=== PATIENT | male | born 1965 | race Caucasian/White ===

== ENCOUNTER 2022-11-08 08:56 | Emergency (ER) | payer BC, SELFPAY ==
--- NOTE | ~2022-11-08 | CT_ITS ---
EXAMINATION: CT HEAD WITHOUT CONTRAST CLINICAL INFORMATION: Fell, hitting face COMPARISON: None TECHNIQUE: Contiguous axial imaging was performed from the skull base to vertex without intravenous administration of contrast. This CT examination was performed using dose optimization techniques as appropriate, variously including the following: *Automated exposure control *Adjustment of mA and/or kV according to patient size (this includes techniques or standardized protocols for targeted exams where dose is matched to indication/reason for exam; i.e. extremities or head) *Use of iterative reconstruction technique DLP: 760.6 mGy-cm FINDINGS: No evidence for acute bleed or mass effect. Cisterns unremarkable. No intraventricular blood seen. There is no evidence for acute territorial infarct or extra-axial collection. Lyons/white matter differentiation is maintained. There is nasal bone fractures with soft tissue swelling. The mastoids appear well aerated. No distinct skull base disruption. Calvarium appears intact. CT/CT head/brain wo IV con IMPRESSION: No evidence for acute hemorrhage or mass effect. Nasal bone fractures with soft tissue swelling.
--- NOTE | ~2022-11-08 | CT_ITS ---
EXAMINATION: CT FACIAL BONES WITHOUT CONTRAST CLINICAL INFORMATION: Fell, hitting face COMPARISON: None TECHNIQUE: Axial sections performed and bone and soft tissue windows without IV contrast enhancement. This CT examination was performed using dose optimization techniques as appropriate, variously including the following: *Automated exposure control *Adjustment of mA and/or kV according to patient size (this includes techniques or standardized protocols for targeted exams where dose is matched to indication/reason for exam; i.e. extremities or head) *Use of iterative reconstruction technique DLP: 324 mGy-cm FINDINGS: Mandible appears intact with no distinct TMJ disruption. The malar bones and the zygomas appear unremarkable. No appreciable maxillary disruption. Orbital rims and floors unremarkable. Comminuted fracture of the nasal bones and evidence of a fracture of the nasal septum series 6 image 160. There is rightward nasal septal deviation. Infundibula are patent with mucosal thickening at the margins. The olfactory grooves are unremarkable. Prominent soft tissue swelling over the nasal bones. Small swelling associated with the inferior frontal scalp. The globes, optic nerves, and extraocular muscles appear unremarkable. Minimal mucoperiosteal thickening associated with the ethmoid and posterior inferior frontal sinuses. CT/CT facial bones wo IV con IMPRESSION: Comminuted fractures of the nasal bones with evidence of a fracture of the nasal septum. Orbital rims and floors appear unremarkable. Soft tissue swelling as noted above.
--- NOTE | ~2022-11-08 | CT_ITS ---
EXAMINATION: CT CERVICAL SPINE WITHOUT CONTRAST CLINICAL INFORMATION: Fell, hitting face COMPARISON: None TECHNIQUE: Axial sections performed and bone and soft tissue windows without IV contrast enhancement. Sagittal and coronal reconstructions performed. This CT examination was performed using dose optimization techniques as appropriate, variously including the following: *Automated exposure control *Adjustment of mA and/or kV according to patient size (this includes techniques or standardized protocols for targeted exams where dose is matched to indication/reason for exam; i.e. extremities or head) *Use of iterative reconstruction technique DLP: 498 mGy-cm FINDINGS: The odontoid and the condyles are unremarkable. C1 and C2 arches intact. Remaining lamina are and pedicle structures unremarkable. There is facet arthrosis. No evidence for acute compression fracture. Multilevel spondylitic change and degenerative disc space narrowing with a Schmorl's node at the inferior aspect of C6. Facet and uncinate hypertrophic changes are seen with evidence of variable foraminal encroachments. No suspicious cervical chain adenopathy. Epiglottis and vocal cords unremarkable. CT/CT cervical spine wo IV con IMPRESSION: No evidence for acute fracture. Multilevel degenerative changes. Fleischner guidelines were followed.
[2022-11-08 09:14] VITALS: BP 143/77; PULSE 81; RESP 18; TEMP 35.8; O2SAT 97; BMI 27.8
--- NOTE | 2022-11-08 09:47 | ED_ITS ---
HPI - Fall General Chief Complaint: Fall Stated Complaint: fall Time Seen by Provider: 11/08/22 09:22 Source: patient Mode of arrival: ambulatory Limitations: no limitations History of Present Illness HPI Narrative: 49-year-old male patient with past medical history of PTSD presents to the emergency department today after falling. He states he got tangled up in his dog's leash this morning around 5:30 a.m. tripped and hit his nose on the table with immediate pain and bleeding. He denies loss of consciousness, changes in vision, headache, nausea, or ringing in his ears. He denies any recent illness or sick contacts. complaint: fall Onset (ago): hour(s) (4) Fall from: standing Fall witnessed: no Place fall occurred: home Loss of consciousness: none Prolonged down time: no Symptoms prior to fall: none Context: tripped/slipped Location of injury: head Related Data Previous Rx's Medication Instructions Recorded cyclobenzaprine 5 mg tablet 5 mg PO TID PRN muscle spasm #14 11/08/22 tabs lidocaine HCl 3 % topical cream 1 appl topical BID PRN pain #28.35 11/08/22 grams naproxen 500 mg tablet 500 mg PO BID PRN pain #30 tabs 11/08/22 Allergies Allergy/AdvReac Type Severity Reaction Status Date / Time shellfish Allergy Unknown hives Uncoded 06/04/19 00:00 Review of Systems Review of Systems: In addition to documented HPI above, the additional ROS was obtained: Constitutional: No Weight loss, No Fever, No Chills ENT/Mouth: No Ear Pain, No Sinus Pain, No Hoarseness, No sore throat, No Swallowing Difficulty Cardiovascular: No Chest Pain, No SOB Respiratory: No Cough, No Sputum, No Wheezing Gastrointestinal: No Nausea, No Vomiting, No Diarrhea, No Constipation, No Abdominal pain Musculoskeletal: No joint pain, No Myalgias, No Joint Swelling Skin: No Skin Lesions, No rash Neuro: No Weakness, No Numbness, No Paresthesias Yes all other systems are reviewed and are negative [facility] Social History Social History Advance Directives: No Advance Directives Information Provided: No Physical Exam Vital Signs: Vital Signs: Last Vital Signs Temp 96.4 F L 11/08/22 09:14 Pulse 81 12/15/22 09:14 Resp 18 11/08/22 09:14 BP 143/77 H 11/08/22 09:14 Pulse Ox 97 11/08/22 09:14 O2 Del Method 11/08/22 09:14 BMI result Body Mass Index 27.8 Const: General: cooperative, alert and awake Nutritional Appearance: well nourished Orientation/consciousness: patient oriented x3 Limitations: no limitations HEENT: Head: Yes normal to inspection, Yes normocephalic and Yes periorbital ecchymosis (bilateral) Ears: hearing grossly normal bilaterally and external ears normal General nose exam: Abnormal external nose present nasal laceration, nasal abrasion, nasal ecchymosis, nasal erythema and nasal swelling and Epistaxis present bilaterally Face and sinus: Yes normal facial exam and Yes face symmetric Throat: Yes posterior oropharynx normal Eyes: General: appearance normal, both eyes and all related structures Visual Palma: normal visual palma by confrontation Alignment and Position: alignment normal Eyelids: Yes eyelids normal Conjunctivae: conjunctivae normal Sclerae: sclerae normal Corneas: corneas normal Pupils: Equal, round and reactive pupils present EOM: EOMs intact bilaterally Neck: Neck: Yes normal visual inspection, Yes full ROM and No tender Chest: Chest palpation & inspection: normal inspection of the chest Resp: Effort & Inspection: normal respiratory effort, no cough and not labored Auscultation: clear to auscultation bilaterally, no crackles, no rhonchi and no wheezes Cardio: Rate: regular rate Rhythm: regular rhythm GI: Inspection: Yes normal to inspection Palpation (GI): Soft to palpation and nontender Auscultation: normal bowel sounds Back/Spine/Pelvis: Cervical Spine: cervical ROM normal Skin: General skin exam: no rashes or lesions noted Trauma: laceration (nasal bridge) Neuro: General: patient oriented x3, tone normal and moves all extremities Cranial nerves: Yes Equal, round and reactive pupils present, Yes Bilaterally intact EOM present, Yes Nystagmus not present and Yes Normal facial strength present Cognition (Neuro): normal cognition Gait exam (Neuro): Normal gait present Motor exam (neuro): 5/5 motor strength present throughout Extrem: General: Yes normal to inspection, Yes full ROM and Yes capillary refill normal Medications Administered Discontinued Medications Generic Name Dose Route Start Last Admin Trade Name Freq PRN Reason Stop Dose Admin Lidocaine HCl 2 ml 12/15/22 10:13 11/08/22 10:29 Lidocaine Hcl 2% 2 Ml Vial INFILTRATI 11/08/22 10:14 2 ml ONCE ONE Administration Procedures Laceration Laceration 1: Site: face and other (nasal bridge) Size (cm): 1.7 Description: linear Depth: simple, single layer Local Anesthetic: lidocaine 2% Amount of anesthesia used (mL): 1 Pre-repair: wound explored, irrigated extensively and deep structures intact Skin layer closed with: other (prolene) Size (cm): 6-0 Number of sutures: 6 Technique: simple, interrupted Medical Decision Making Medical Decision Making MDM Narrative: 49-year-old male patient with past medical history of PTSD presents to the emergency department today after falling. He states he got tangled up in his dog's leash this morning around 5:30 a.m. tripped and hit his nose on the table with immediate pain and bleeding. 1.7 cm laceration present at nasal bridge. Laceration cleansed and irrigated and repaired with 6 sutures with good approximation of laceration. 1 cm superficial laceration at inner left eyebrow, cleansed with no need for repair. Skin tear near end of nose, cleansed with no need for repair. CT head with no evidence for acute hemorrhage or mass effect, nasal bone fractures with soft tissue swelling. CT cervical spine with no evidence for acute fracture, multilevel degenerative changes. CT face with evidence of comminuted fractures of the nasal bones wth evidence of a fracture of the nasal septum, orbital rims and floors appear unremarkable. Bilateral nares packed with gauze due to continued bleeding. Afrin given with reduction in bleeding. No evidence of septal hematoma on exam. Pt states he is beginning to f eel increased neck soreness/stiffness. IM toradol given for pain with good effect. Pt safe for discharge with plan to return to PCP office or ED for removal of sutures in 5 days. Cyclobenzaprine, Naproxen and lidocaine topical cream sent to preferred pharmacy for management of pain. HPI, PE, diagnostics, and plan discussed with pt with no unanswered questions at this time. Educated to return to the emergency department with increased bleeding, vision changes, headache, dizziness, nausea, vomiting. Recommended to follow up with his primary care provider for further treatment and management. Discharge Plan Discharge Clinical Impression: Nasal bone fractures Patient Disposition: Home, Self-Care Instructions: Naproxen (By mouth), Cyclobenzaprine (By mouth), Lidocaine (Into the skin), Nasal Fracture (ED) Additional Instructions: Please present to your PCP office or return to the emergency department for removal of sutures in 5 days. Cyclobenzaprine (muscle relaxer), Naproxen and lidocaine patches sent to preferred pharmacy for management of pain. Please do not drive, drink alcohol, or use marijuana while taking muscle relaxer. Please return to the emergency department with increased bleeding, vision changes, headache, dizziness, nausea, vomiting, fever, chills, or purulent drainage from your nose. Recommended to follow up with his primary care provider for further treatment and management. Prescriptions: New cyclobenzaprine 5 mg tablet 5 mg PO TID PRN (Reason: muscle spasm) Qty: 14 0RF naproxen 500 mg tablet 500 mg PO BID PRN (Reason: pain) Qty: 30 0RF lidocaine HCl 3 % cream 1 appl topical BID PRN (Reason: pain) Qty: 28.35 0RF Referrals: [facility] [place] Family Medicine [Provider Group] [facility] [place] Primary [facility] [Provider Group] [facility] [place] [facility] [Provider Group] Stand Alone Forms: Work/School Release Print Language: Palestinian
[2022-11-08] MEDS: Ketorolac Tromethamine 15 MG/ML VIAL IM (11:12)
[2022-11-08] MEDS: Oxymetazoline HCl 0.05 % Nasal 15 ML SPRAY 2 SPRAY NOSTRIL-B (11:13)
== END 2022-11-08 11:16 | disposition home or self-care (01) ==
PROVIDERS: Emergency Provider Student in an Organized Health Care Education/Training Program
DX: S02.2XXA Fracture of nasal bones, initial encounter for closed fracture (principal); F43.10 Post-traumatic stress disorder, unspecified; M54.2 Cervicalgia; R51.9 Headache, unspecified; W01.10XA Fall on same level from slipping, tripping and stumbling with subsequent striking against unspecified object, initial encounter; Y93.K1 Activity, walking an animal; Y92.480 Sidewalk as the place of occurrence of the external cause; Y99.9 Unspecified external cause status; Z79.899 Other long term (current) drug therapy
CPT/HCPCS: 12011; 70450; 70486; 72125; 96372; 99283; 99284; J1885

== ENCOUNTER 2022-12-18 14:03 | Emergency (ER) | payer BC, SELFPAY ==
--- NOTE | ~2022-12-18 | CT_ITS ---
EXAMINATION: CT HEAD WITHOUT CONTRAST CLINICAL INFORMATION: Difficulty word finding. History of A. fib on eliquis COMPARISON: Head CT 11/08/2022 TECHNIQUE: Imaging was performed from the skull base to vertex without intravenous administration of contrast. This CT examination was performed using dose optimization techniques as appropriate, variously including the following: *Automated exposure control *Adjustment of mA and/or kV according to patient size (this includes techniques or standardized protocols for targeted exams where dose is matched to indication/reason for exam; i.e. extremities or head) *Use of iterative reconstruction technique Total exam dose length product: 735 mGy-cm FINDINGS: No intra or extra-axial fluid collection, hemorrhage, or mass. No ventriculomegaly. No midline shift or herniation. Basal cisterns are patent. Lyons-white matter differentiation is maintained. No territorial encephalomalacia. No significant volume loss. Small focus of hypoattenuation in the left lentiform nucleus, possibly remote lacunar infarct versus dilated perivascular space, unchanged. No calvarial fracture or soft tissue abnormality. The mastoid air cells and visualized portions of the paranasal sinuses are well aerated. Comminuted displaced fracture deformity of the nasal bones are demonstrated. CT/CT head/brain wo IV con IMPRESSION: No acute intracranial pathology. No acute cranial hemorrhage or acute edematous territorial infarct identified.
--- NOTE | ~2022-12-18 | XR_ITS ---
EXAMINATION: XR CHEST CLINICAL INFORMATION: Chest pain COMPARISON: None TECHNIQUE: Frontal view of the chest was obtained. FINDINGS: The lungs are well expanded. There is no focal consolidation, edema, or effusion. No pneumothorax. The cardiomediastinal silhouette is within normal limits. No acute osseous abnormality. XR/XR chest 1V IMPRESSION: No acute pulmonary disease.
--- NOTE | 2022-12-18 14:04 | ECG_ITS ---
Test Reason : HEART ATACK? Blood Pressure : / mmHG Vent. Rate : 092 BPM Atrial Rate : 092 BPM P-R Int : 188 ms QRS Dur : 212 ms QT Int : 460 ms P-R-T Axes : 088 -59 095 degrees QTc Int : 568 ms Normal sinus rhythm Left axis deviation Left bundle branch block Abnormal ECG No previous ECGs available Referred By: Rita Ontiveros Electronically Signed By:EVA SANTANA
--- NOTE | 2022-12-18 14:08 | ED_ITS ---
HPI - Weakness General Chief complaint: General Medical <ANTONINO Brooks - Last Filed: 12/18/22 14:17> Stated complaint: Heart attack? <ANTONINO Brooks - Last Filed: 12/18/22 14:17> Time Seen by Provider: 12/18/22 14:18 <ANTONINO Brooks - Last Filed: 12/18/22 14:17> Source: patient and family (Friend) <Peyman Solares MD - Last Filed: 12/18/22 19:08> Mode of arrival: ambulatory <Peyman Solares MD - Last Filed: 12/18/22 19:08> Limitations: no limitations <Peyman Solares MD - Last Filed: 12/18/22 19:08> History of Present Illness HPI Narrative: 57-year-old male who presents emergency department for evaluation of you syncopal like symptoms. The patient states that at 12:15 he was working at his desk using a touch screen computer. He states that he was trying to touch the screen when his right hand started to shake. He states that both his upper extremities were shaking in his lower extremities were shaking as well. States he was having difficulty standing felt his legs going to give out on him. He states that the symptoms lasted approximately 20 minutes and still feels shaky at the time of presentation He states he developed tunnel vision which lasted approximately 10 seconds but did not pass out . He denies headache. The patient states that he was recently [place] for 2 days and then he went to see his doctor at the [facility]. The patient has cardiomyopathy and has not been taking these medications for approximately 4-6 months. After seeing is [facility] he restarted his medications on Saturday (5 days prior). He is on the following medications atorvastatin 80 mg at night, torsemide 20 mg daily, Eliquis 5 mg twice a day, carvedilol 6.2 mg twice a day Entresto 26 mg twice a day. Patient denied fever, chills, rhinorrhea, sore throat, cough, chest pain. He states that he has been feeling short of breath and having dyspnea on exertion for 2 weeks. States however he has been able to walk several miles and walk the dog without any difficulty. He has had nausea and vomiting for the past 2 days, he states he has had 2-3 episodes of diarrhea over the past 2 days. <Peyman Solares MD - Last Filed: 12/18/22 19:08> Related Data Home medications: Previous Rx's Medication Instructions Recorded cyclobenzaprine 5 mg tablet 5 mg PO TID PRN muscle spasm #14 11/08/22 tabs lidocaine HCl 3 % topical cream 1 appl topical BID PRN pain #28.35 11/08/22 grams naproxen 500 mg tablet 500 mg PO BID PRN pain #30 tabs 11/08/22 <ANTONINO Brooks - Last Filed: 12/18/22 14:17> Allergies/Adverse reactions: Allergies Allergy/AdvReac Type Severity Reaction Status Date / Time shellfish Allergy Unknown hives Uncoded 06/04/19 00:00 <ANTONINO Brooks - Last Filed: 12/18/22 14:17> Review of Systems Review of Systems: Yes all other systems are reviewed and are negative <Peyman Solares MD - Last Filed: 12/18/22 19:08> [facility] Past Medical History [facility] Narrative: Past medical history: High cholesterol, coronary disease with an ID 7 years prior, cardiomyopathy with an EF of 34%, paroxysmal atrial fibrillation status post ablation, kidney disease. Social history: He states he has had a cardiac ablation for atrial fibrillation, he has had multiple cardioversions, he had 2 hernias repaired in the past. Social history: The patient smokes 5 cigarettes per day but he states that he has smoked more in the past, he smoked for 9 years. He denies alcohol use. He states that does not use drugs at this time but he has used crack cocaine in the past. <Peyman Solares MD - Last Filed: 12/18/22 19:08> Social History Social History: Social History Advance Directives: No Advance Directives Information Provided: No <ANTONINO Brooks - Last Filed: 12/18/22 14:17> Physical Exam Vital Signs: Vital Signs: Last Vital Signs Temp 97.2 F 12/18/22 14:15 Pulse 94 12/18/22 15:15 Resp 18 12/18/22 14:15 BP 81/50 L 12/18/22 15:15 Pulse Ox 93 12/18/22 14:15 O2 Del Method 12/18/22 14:15 BMI result Body Mass Index 26.0 <ANTONINO Brooks - Last Filed: 12/18/22 14:17> Vital Signs: Last Vital Signs Temp 97.2 F 12/18/22 14:15 Pulse 94 12/18/22 15:15 Resp 18 12/18/22 14:15 BP 81/50 L 12/18/22 15:15 Pulse Ox 93 12/18/22 14:15 O2 Del Method 12/18/22 14:15 BMI result Body Mass Index 26.0 <Peyman Solares MD - Last Filed: 12/18/22 19:08> Const: Other: Awake alert male patient, answers all questions appropriately, does not have any obvious difficulty with word finding, he appears to be anxious <Peyman Solares MD - Last Filed: 12/18/22 19:08> Orientation/consciousness: oriented to person and oriented to place <Peyman Solares MD - Last Filed: 12/18/22 19:08> HEENT: Head: Yes normal to inspection, Yes normocephalic and Yes atraumatic <Peyman Solares MD - Last Filed: 12/18/22 19:08> Ears: external ears normal <Peyman Solares MD - Last Filed: 12/18/22 19:08> General nose exam: Normal external nose present <Peyman Solares MD - Last Filed: 12/18/22 19:08> Face and sinus: Yes normal facial exam <Peyman Solares MD - Last Filed: 12/18/22 19:08> Mouth: Normal oral and palatal mucosa present <Peyman Solares MD - Last Filed: 12/18/22 19:08> Throat: Yes posterior oropharynx normal <Peyman Solares MD - Last Filed: 12/18/22 19:08> Eyes: General: appearance normal, both eyes and all related structures <Peyman Solares MD - Last Filed: 12/18/22 19:08> Pupils: Equal, round and reactive pupils present <Peyman Solares MD - Last Filed: 12/18/22 19:08> Neck: Neck: Yes normal visual inspection, Yes no lymphadenopathy, Yes trachea midline and Yes supple <Peyman Solares MD - Last Filed: 12/18/22 19:08> Chest: Chest palpation & inspection: normal inspection of the chest and normal palpation of entire chest wall <Peyman Solares MD - Last Filed: 12/18/22 19:08> Resp: Effort & Inspection: normal respiratory effort and able to speak in complete sentences <Peyman Solares MD - Last Filed: 12/18/22 19:08> Auscultation: clear to auscultation bilaterally <Peyman Solares MD - Last Filed: 12/18/22 19:08> Cardio: Rate: regular rate <Peyman Solares MD - Last Filed: 12/18/22 19:08> Rhythm: regular rhythm <Peyman Solares MD - Last Filed: 12/18/22 19:08> Heart sounds: S1 normal heart sound present, S2 normal heart sound present and no murmurs <Peyman Solares MD - Last Filed: 12/18/22 19:08> GI: Inspection: Yes normal to inspection <Peyman Solares MD - Last Filed: 12/18/22 19:08> Palpation (GI): Soft to palpation, nontender and no guarding <Peyman Solares MD - Last Filed: 12/18/22 19:08> Auscultation: normal bowel sounds <MD Raheel Og Last Filed: 12/18/22 19:08> : General: Yes no CVA tenderness <Peyman Solares MD - Last Filed: 12/18/22 19:08> Back/Spine/Pelvis: Back: no CVA tenderness <MD Raheel Og Last Filed: 12/18/22 19:08> Skin: General skin exam: no rashes or lesions noted <Peyman Solares MD - Last Filed: 12/18/22 19:08> Neuro: General: oriented to person and oriented to place <Peyman Solares MD - Last Filed: 12/18/22 19:08> Cranial nerves: Yes CN's II-XII intact bilaterally and Yes Equal, round and reactive pupils present <MD Raheel Og Last Filed: 12/18/22 19:08> Cognition (Neuro): normal cognition <Peyman Solares MD - Last Filed: 12/18/22 19:08> Motor exam (neuro): 5/5 motor strength present throughout <Peyman Solares MD - Last Filed: 12/18/22 19:08> Extrem: General: Yes normal to inspection <Peyman Solares MD - Last Filed: 12/18/22 19:08> Psych: Appearance: grossly normal <Peyman Solares MD - Last Filed: 12/18/22 19:08> Speech and movement: Normal speech and movement present <Peyman Solares MD - Last Filed: 12/18/22 19:08> Affect: normal affect <Peyman Solares MD - Last Filed: 12/18/22 19:08> Attitude: cooperative <Peyman Solares MD - Last Filed: 12/18/22 19:08> Thought process: Normal thought process present <MD Raheel Og Last Filed: 12/18/22 19:08> Thought content: Normal thought content present <MD Raheel Og Las t Filed: 12/18/22 19:08> Course Course Course Narrative: RME - 57 yo male with history of CHF, LBBB who follows with Cardiology at the [facility] and has been noncompliant with his cardiac medications present to the ER with acute onset of tunnel vision and feeling extremely weak while at his office working on the computer. He states he collapsed to the ground and his arms and legs aren't working. No LOC. Today was the 1st time he took his Coreg in a while. Just got back from [place] yesterday. Floyd well when he woke up today, walked his dog. Brought directly to EKG - VS, POC, Labs, CXR ordered. Still has tunnel vision and feels weak. <ANTONINO Brooks - Last Filed: 12/18/22 14:17> Medications Administered Discontinued Medications Generic Name Dose Route Start Last Admin Trade Name Freq PRN Reason Stop Dose Admin Sodium Chloride 1,000 mls @ 999 mls/hr 12/18/22 14:51 12/18/22 17:17 Ns IV 12/18/22 15:51 Infused .Q1H1M STA Infusion Sodium Chloride 1,000 mls @ 999 mls/hr 12/18/22 16:56 12/18/22 17:17 Ns IV 12/18/22 17:56 999 mls/hr .Q1H1M STA Administration <ANTONINO Brooks - Last Filed: 12/18/22 14:17> Medications Administered Discontinued Medications Generic Name Dose Route Start Last Admin Trade Name Freq PRN Reason Stop Dose Admin Sodium Chloride 1,000 mls @ 999 mls/hr 12/18/22 14:51 12/18/22 17:17 Ns IV 12/18/22 15:51 Infused .Q1H1M STA Infusion Sodium Chloride 1,000 mls @ 999 mls/hr 12/18/22 16:56 12/18/22 17:17 Ns IV 12/18/22 17:56 999 mls/hr .Q1H1M STA Administration <Peyman Solares MD - Last Filed: 12/18/22 19:08> Medical Decision Making Medical Decision Making MDM Narrative: 57-year-old male who presents emergency department for evaluation of shakiness of his upper and lower extremities with weakness, brief tunnel vision, with symptoms being at 12:15 today. Patient did recently travel to [facility] and to the [facility]. States that he has had 2 weeks of shortness of breath and dyspnea on exertion and 1-2 days of nausea vomiting and diarrhea(2 episodes per day) as well. Patient does have a history of left bundle-branch block coronary artery disease and cardiomyopathy with an EF of 34% but has been noncompliant with his medications and restarted these medications on Saturday (5 days prior). Vital signs were normal. Patient's physical examination did reveal an anxious appearing male patient but otherwise exam was unremarkable with a nonfocal neurologic exam. Following tests were ordered by triage rapid medical exam provider: CBC, BMP, liver panel, BNP, magnesium, PT/INR, PTT, troponin, urinalysis and chest x-ray one view. I ordered a urine drug screen, CT scan of the brain without IV contrast. I will check orthostatic vital signs on the patient. I believe that he might be slightly volume depleted, therefore I ordered normal saline x1 L. 1704: The patient was orthostatic, BP supine 114/73 with a pulse of 92, BP sitting 100/66 heart rate 92, BP standing 81/50 with a heart rate of 94, the patient was lightheaded and symptomatic. Patient's laboratory evaluation was interpreted by me as follows: CBC normal. Chloride low 93, CO2 high 31, BUN creatinine elevated 51 and 1.82. Patient does have chronic kidney disease but we did have BUN and creatinine from 06/04/2019 which was normal at 23 and 1.16. Patient's urine tox screen was also positive for fentanyl and cocaine I did discuss this with him he does admit to using drugs. CT scan of the head revealed a recent nasal bone fracture, patient states septum 3 weeks prior when he was walking his dog. Patient was ordered to get a 2 L of normal saline IV, patient will have a repeat BMP and troponin at 17:45 hours. You also have repeat orthostatics at that time. 1903: The patient's repeat troponin was 17.6 which is reassuring since there was no significant increase. Patient's BUN creatinine did improve slightly. The patient is feeling significantly better after receiving the IV fluid. Patient's symptoms were most likely caused by dehydration and causing a near syncopal episode. Patient was discharged home. The patient is here with a co- worker but I did discuss the positive fentanyl and cocaine, the patient does not want any counseling at this time, I did tell him that if he continues to use pamela melissa he will probably from an overdose of fentanyl and he did understand this discussion. The patient will be discharged to home with a Narcan rescue pack and I did discuss using with a sober bystander they can save his life in the event that he stops breathing. <Peyman Solares MD - Last Filed: 12/18/22 19:08> Differential Diagnosis Differential diagnosis includes but is not limited to syncope, near syncope, stroke, arrhythmia, dehydration, toxic metabolic syndrome, drug use, myocardial infarction, <Peyman Solares MD - Last Filed: 12/18/22 19:08> Lab Data Result Diagrams: 12/18/22 14:40 12/18/22 14:40 <ANTONINO Brooks - Last Filed: 12/18/22 14:17> Labs: Lab Results 12/18/22 12/18/22 12/18/22 Range/Units 14:14 14:40 14:40 WBC 9.5 (4.8-10.8) X10*3/uL RBC 5.14 (4.60-5.80) X10*6/uL Hgb 15.4 (14.0-18.0) g/dl Hct 46.1 (42.0-52.0) % MCV 89.7 (80.0-98.0) fL MCH 30.0 (27.0-33.0) pg MCHC 33.4 (31.0-36.0) g/dl RDW 12.6 (11.0-16.0) % Plt Count 228 (160-400) X10*3/uL MPV 10.7 (9.4-12.4) fL Immature Gran % (Auto) 0.2 (0.0-0.4) % Neut % (Auto) 64.7 (45-73) % Lymph % (Auto) 26.5 (20-40) % Ferry % (Auto) 6.6 (2-11) % Eos % (Auto) 1.7 (0-4) % Baso % (Auto) 0.3 (0-2) % Lymph # (Auto) 2.5 (1.2-4.9) X10*3/uL Ferry # (Auto) 0.6 (0.1-1.2) X10*3/uL Eos # (Auto) 0.2 (0.0-0.4) X10*3/uL Baso # (Auto) 0.0 (0.0-0.2) X10*3/uL Abs Immat Gran (auto) 0.02 (0.00-0.03) X10*3/uL Absolute Neuts (auto) 6.1 (2.0-8.3) x10*3/uL Absolute Nucleated RBC 0.000 (0.0-0.012) X10*3/uL Nucleated RBC % (auto) 0.0 (0.0-0.2) /100WBC PT (10.0-13.1) SEC INR (0.9-1.1) APTT (26.0-36.4) SEC Sodium 137 (135-145) mmol/L Potassium 3.8 (3.3-5.1) mmol/L Chloride 93 L (96-108) mmol/L Carbon Dioxide 31 H (22-29) mmol/L Anion Gap 17 (12-20) BUN 51 H (9-16) mg/dL Creatinine 1.82 H (0.5-1.4) mg/dL Estim Creat Clear Calc 51.4 Estimated GFR 38 POC Glucose 122 H (60-115) mg/dL Random Glucose 127 H (60-115) mg/dL Calcium 9.0 (8.4-10.2) mg/dL Magnesium 2.2 (1.6-2.6) mg/dL Total Bilirubin 1.0 (0.0-1.0) mg/dL Direct Bilirubin 0.4 (0.0-0.5) mg/dL AST 23 (5-37) U/L ALT 16 (0-40) U/L Alkaline Phosphatase 78 (39-117) U/L Troponin I High Sens (<3.5-35.0) ng/L B-Natriuretic Peptide (<100) pg/mL Total Protein 7.3 (6.5-8.0) g/dL Albumin 4.3 (3.5-5.0) g/dL Urine Color Urine Appearance Urine pH (5.0-9.0) Ur Specific Campbell (1.005-1.025) Urine Protein (Neg-Trace) mg/dL Urine Glucose (UA) (Negative) mg/dL Urine Ketones (Negative) mg/dL Urine Blood (Negative) Urine Nitrite (Negative) Ur Leukocyte Esterase (Negative) Urine RBC (0-2) /HPF Urine WBC (0-5) /HPF Ur Squamous Epith Cells (0-2) /HPF Urine Bacteria (None Seen) Hyaline Casts (0-2) /LPF Urine Opiates Screen (Not Detect) Urine Fentanyl Screen (Not Detect) Ur Barbiturates Screen (Not Detect) Ur Phencyclidine Scrn (Not Detect) Ur Amphetamines Screen (Not Detect) U Benzodiazepines Scrn (Not Detect) Urine Cocaine Screen (Not Detect) U Marijuana (THC) Screen (Not Detect) COVID-19 (BRENDON) (Negative) COVID-19 Clin Com 12/18/22 12/18/22 12/18/22 Range/Units 14:40 14:40 14:40 WBC (4.8-10.8) X10*3/uL RBC (4.60-5.80) X10*6/uL Hgb (14.0-18.0) g/dl Hct (42.0-52.0) % MCV (80.0-98.0) fL MCH (27.0-33.0) pg MCHC (31.0-36.0) g/dl RDW (11.0-16.0) % Plt Count (160-400) X10*3/uL MPV (9.4-12.4) fL Immature Gran % (Auto) (0.0-0.4) % Neut % (Auto) (45-73) % Lymph % (Auto) (20-40) % Ferry % (Auto) (2-11) % Eos % (Auto) (0-4) % Baso % (Auto) (0-2) % Lymph # (Auto) (1.2-4.9) X10*3/uL Ferry # (Auto) (0.1-1.2) X10*3/uL Eos # (Auto) (0.0-0.4) X10*3/uL Baso # (Auto) (0.0-0.2) X10*3/uL Abs Immat Gran (auto) (0.00-0.03) X10*3/uL Absolute Neuts (auto) (2.0-8.3) x10*3/uL Absolute Nucleated RBC (0.0-0.012) X10*3/uL Nucleated RBC % (auto) (0.0-0.2) /100WBC PT 13.4 H (10.0-13.1) SEC INR 1.2 H (0.9-1.1) APTT 36.1 (26.0-36.4) SEC Sodium (135-145) mmol/L Potassium (3.3-5.1) mmol/L Chloride (96-108) mmol/L Carbon Dioxide (22-29) mmol/L Anion Gap (12-20) BUN (9-16) mg/dL Creatinine (0.5-1.4) mg/dL Estim Creat Clear Calc Estimated GFR POC Glucose (60-115) mg/dL Random Glucose (60-115) mg/dL Calcium (8.4-10.2) mg/dL Magnesium (1.6-2.6) mg/dL Total Bilirubin (0.0-1.0) mg/dL Direct Bilirubin (0.0-0.5) mg/dL AST (5-37) U/L ALT (0-40) U/L Alkaline Phosphatase (39-117) U/L Troponin I High Sens 18.2 (<3.5-35.0) ng/L B-Natriuretic Peptide 52 (<100) pg/mL Total Protein (6.5-8.0) g/dL Albumin (3.5-5.0) g/dL Urine Color Urine Appearance Urine pH (5.0-9.0) Ur Specific Campbell (1.005-1.025) Urine Protein (Neg-Trace) mg/dL Urine Glucose (UA) (Negative) mg/dL Urine Ketones (Negative) mg/dL Urine Blood (Negative) Urine Nitrite (Negative) Ur Leukocyte Esterase (Negative) Urine RBC (0-2) /HPF Urine WBC (0-5) /HPF Ur Squamous Epith Cells (0-2) /HPF Urine Bacteria (None Seen) Hyaline Casts (0-2) /LPF Urine Opiates Screen (Not Detect) Urine Fentanyl Screen (Not Detect) Ur Barbiturates Screen (Not Detect) Ur Phencyclidine Scrn (Not Detect) Ur Amphetamines Screen (Not Detect) U Benzodiazepines Scrn (Not Detect) Urine Cocaine Screen (Not Detect) U Marijuana (THC) Screen (Not Detect) COVID-19 (BRENDON) (Negative) COVID-19 Clin Com 12/18/22 12/18/22 12/18/22 Range/Units 14:51 14:51 15:03 WBC (4.8-10.8) X10*3/uL RBC (4.60-5.80) X10*6/uL Hgb (14.0-18.0) g/dl Hct (42.0-52.0) % MCV (80.0-98.0) fL MCH (27.0-33.0) pg MCHC (31.0-36.0) g/dl RDW (11.0-16.0) % Plt Count (160-400) X10*3/uL MPV (9.4-12.4) fL Immature Gran % (Auto) (0.0-0.4) % Neut % (Auto) (45-73) % Lymph % (Auto) (20-40) % Ferry % (Auto) (2-11) % Eos % (Auto) (0-4) % Baso % (Auto) (0-2) % Lymph # (Auto) (1.2-4.9) X10*3/uL Ferry # (Auto) (0.1-1.2) X10*3/uL Eos # (Auto) (0.0-0.4) X10*3/uL Baso # (Auto) (0.0-0.2) X10*3/uL Abs Immat Gran (auto) (0.00-0.03) X10*3/uL Absolute Neuts (auto) (2.0-8.3) x10*3/uL Absolute Nucleated RBC (0.0-0.012) X10*3/uL Nucleated RBC % (auto) (0.0-0.2) /100WBC PT (10.0-13.1) SEC INR (0.9-1.1) APTT (26.0-36.4) SEC Sodium (135-145) mmol/L Potassium (3.3-5.1) mmol/L Chloride (96-108) mmol/L Carbon Dioxide (22-29) mmol/L Anion Gap (12-20) BUN (9-16) mg/dL Creatinine (0.5-1.4) mg/dL Estim Creat Clear Calc Estimated GFR POC Glucose (60-115) mg/dL Random Glucose (60-115) mg/dL Calcium (8.4-10.2) mg/dL Magnesium (1.6-2.6) mg/dL Total Bilirubin (0.0-1.0) mg/dL Direct Bilirubin (0.0-0.5) mg/dL AST (5-37) U/L ALT (0-40) U/L Alkaline Phosphatase (39-117) U/L Troponin I High Sens (<3.5-35.0) ng/L B-Natriuretic Peptide (<100) pg/mL Total Protein (6.5-8.0) g/dL Albumin (3.5-5.0) g/dL Urine Color Yellow Urine Appearance Clear Urine pH 5.5 (5.0-9.0) Ur Specific Campbell 1.010 (1.005-1.025) Urine Protein Negative (Neg-Trace) mg/dL Urine Glucose (UA) Negative (Negative) mg/dL Urine Ketones Negative (Negative) mg/dL Urine Blood Negative (Negative) Urine Nitrite Negative (Negative) Ur Leukocyte Esterase Trace H (Negative) Urine RBC 0-2 (0-2) /HPF Urine WBC 0-5 (0-5) /HPF Ur Squamous Epith Cells 0-2 (0-2) /HPF Urine Bacteria None Seen (None Seen) Hyaline Casts 0-2 (0-2) /LPF Urine Opiates Screen Not Detected (Not Detect) Urine Fentanyl Screen POSITIVE H (Not Detect) Ur Barbiturates Screen Not Detected (Not Detect) Ur Phencyclidine Scrn Not Detected (Not Detect) Ur Amphetamines Screen Not Detected (Not Detect) U Benzodiazepines Scrn Not Detected (Not Detect) Urine Cocaine Screen POSITIVE H (Not Detect) U Marijuana (THC) Screen Not Detected (Not Detect) COVID-19 (BRENDON) Negative (Negative) COVID-19 Clin Com See Note 12/18/22 12/18/22 Range/Units 18:25 18:25 WBC (4.8-10.8) X10*3/uL RBC (4.60-5.80) X10*6/uL Hgb (14.0-18.0) g/dl Hct (42.0-52.0) % MCV (80.0-98.0) fL MCH (27.0-33.0) pg MCHC (31.0-36.0) g/dl RDW (11.0-16.0) % Plt Count (160-400) X10*3/uL MPV (9.4-12.4) fL Immature Gran % (Auto) (0.0-0.4) % Neut % (Auto) (45-73) % Lymph % (Auto) (20-40) % Ferry % (Auto) (2-11) % Eos % (Auto) (0-4) % Baso % (Auto) (0-2) % Lymph # (Auto) (1.2-4.9) X10*3/uL Ferry # (Auto) (0.1-1.2) X10*3/uL Eos # (Auto) (0.0-0.4) X10*3/uL Baso # (Auto) (0.0-0.2) X10*3/uL Abs Immat Gran (auto) (0.00-0.03) X10*3/uL Absolute Neuts (auto) (2.0-8.3) x10*3/uL Absolute Nucleated RBC (0.0-0.012) X10*3/uL Nucleated RBC % (auto) (0.0-0.2) /100WBC PT (10.0-13.1) SEC INR (0.9-1.1) APTT (26.0-36.4) SEC Sodium 136 (135-145) mmol/L Potassium 3.3 (3.3-5.1) mmol/L Chloride 96 (96-108) mmol/L Carbon Dioxide 30 H (22-29) mmol/L Anion Gap 13 (12-20) BUN 42 H (9-16) mg/dL Creatinine 1.53 H (0.5-1.4) mg/dL Estim Creat Clear Calc 61.1 Estimated GFR 47 POC Glucose (60-115) mg/dL Random Glucose 181 H (60-115) mg/dL Calcium 8.1 L D (8.4-10.2) mg/dL Magnesium (1.6-2.6) mg/dL Total Bilirubin (0.0-1.0) mg/dL Direct Bilirubin (0.0-0.5) mg/dL AST (5-37) U/L ALT (0-40) U/L Alkaline Phosphatase (39-117) U/L Troponin I High Sens 17.6 (<3.5-35.0) ng/L B-Natriuretic Peptide (<100) pg/mL Total Protein (6.5-8.0) g/dL Albumin (3.5-5.0) g/dL Urine Color Urine Appearance Urine pH (5.0-9.0) Ur Specific Campbell (1.005-1.025) Urine Protein (Neg-Trace) mg/dL Urine Glucose (UA) (Negative) mg/dL Urine Ketones (Negative) mg/dL Urine Blood (Negative) Urine Nitrite (Negative) Ur Leukocyte Esterase (Negative) Urine RBC (0-2) /HPF Urine WBC (0-5) /HPF Ur Squamous Epith Cells (0-2) /HPF Urine Bacteria (None Seen) Hyaline Casts (0-2) /LPF Urine Opiates Screen (Not Detect) Urine Fentanyl Screen (Not Detect) Ur Barbiturates Screen (Not Detect) Ur Phencyclidine Scrn (Not Detect) Ur Amphetamines Screen (Not Detect) U Benzodiazepines Scrn (Not Detect) Urine Cocaine Screen (Not Detect) U Marijuana (THC) Screen (Not Detect) COVID-19 (BRENDON) (Negative) COVID-19 Clin Com <ANTONINO Brooks - Last Filed: 12/18/22 14:17> Lab Results 12/18/22 12/18/22 12/18/22 Range/Units 14:14 14:40 14:40 WBC 9.5 (4.8-10.8) X10*3/uL RBC 5.14 (4.60-5.80) X10*6/uL Hgb 15.4 (14.0-18.0) g/dl Hct 46.1 (42.0-52.0) % MCV 89.7 (80.0-98.0) fL MCH 30.0 (27.0-33.0) pg MCHC 33.4 (31.0-36.0) g/dl RDW 12.6 (11.0-16.0) % Plt Count 228 (160-400) X10*3/uL MPV 10.7 (9.4-12.4) fL Immature Gran % (Auto) 0.2 (0.0-0.4) % Neut % (Auto) 64.7 (45-73) % Lymph % (Auto) 26.5 (20-40) % Ferry % (Auto) 6.6 (2-11) % Eos % (Auto) 1.7 (0-4) % Baso % (Auto) 0.3 (0-2) % Lymph # (Auto) 2.5 (1.2-4.9) X10*3/uL Ferry # (Auto) 0.6 (0.1-1.2) X10*3/uL Eos # (Auto) 0.2 (0.0-0.4) X10*3/uL Baso # (Auto) 0.0 (0.0-0.2) X10*3/uL Abs Immat Gran (auto) 0.02 (0.00-0.03) X10*3/uL Absolute Neuts (auto) 6.1 (2.0-8.3) x10*3/uL Absolute Nucleated RBC 0.000 (0.0-0.012) X10*3/uL Nucleated RBC % (auto) 0.0 (0.0-0.2) /100WBC PT (10.0-13.1) SEC INR (0.9-1.1) APTT (26.0-36.4) SEC Sodium 137 (135-145) mmol/L Potassium 3.8 (3.3-5.1) mmol/L Chloride 93 L (96-108) mmol/L Carbon Dioxide 31 H (22-29) mmol/L Anion Gap 17 (12-20) BUN 51 H (9-16) mg/dL Creatinine 1.82 H (0.5-1.4) mg/dL Estim Creat Clear Calc 51.4 Estimated GFR 38 POC Glucose 122 H (60-115) mg/dL Random Glucose 127 H (60-115) mg/dL Calcium 9.0 (8.4-10.2) mg/dL Magnesium 2.2 (1.6-2.6) mg/dL Total Bilirubin 1.0 (0.0-1.0) mg/dL Direct Bilirubin 0.4 (0.0-0.5) mg/dL AST 23 (5-37) U/L ALT 16 (0-40) U/L Alkaline Phosphatase 78 (39-117) U/L Troponin I High Sens (<3.5-35.0) ng/L B-Natriuretic Peptide (<100) pg/mL Total Protein 7.3 (6.5-8.0) g/dL Albumin 4.3 (3.5-5.0) g/dL Urine Color Urine Appearance Urine pH (5.0-9.0) Ur Specific Campbell (1.005-1.025) Urine Protein (Neg-Trace) mg/dL Urine Glucose (UA) (Negative) mg/dL Urine Ketones (Negative) mg/dL Urine Blood (Negative) Urine Nitrite (Negative) Ur Leukocyte Esterase (Negative) Urine RBC (0-2) /HPF Urine WBC (0-5) /HPF Ur Squamous Epith Cells (0-2) /HPF Urine Bacteria (None Seen) Hyaline Casts (0-2) /LPF Urine Opiates Screen (Not Detect) Urine Fentanyl Screen (Not Detect) Ur Barbiturates Screen (Not Detect) Ur Phencyclidine Scrn (Not Detect) Ur Amphetamines Screen (Not Detect) U Benzodiazepines Scrn (Not Detect) Urine Cocaine Screen (Not Detect) U Marijuana (THC) Screen (Not Detect) COVID-19 ([facility]) (Negative) COVID-19 Clin Com 12/18/22 12/18/22 12/18/22 Range/Units 14:40 14:40 14:40 WBC (4.8-10.8) X10*3/uL RBC (4.60-5.80) X10*6/uL Hgb (14.0-18.0) g/dl Hct (42.0-52.0) % MCV (80.0-98.0) fL MCH (27.0-33.0) pg MCHC (31.0-36.0) g/dl RDW (11.0-16.0) % Plt Count (160-400) X10*3/uL MPV (9.4-12.4) fL Immature Gran % (Auto) (0.0-0.4) % Neut % (Auto) (45-73) % Lymph % (Auto) (20-40) % Ferry % (Auto) (2-11) % Eos % (Auto) (0-4) % Baso % (Auto) (0-2) % Lymph # (Auto) (1.2-4.9) X10*3/uL Ferry # (Auto) (0.1-1.2) X10*3/uL Eos # (Auto) (0.0-0.4) X10*3/uL Baso # (Auto) (0.0-0.2) X10*3/uL Abs Immat Gran (auto) (0.00-0.03) X10*3/uL Absolute Neuts (auto) (2.0-8.3) x10*3/uL Absolute Nucleated RBC (0.0-0.012) X10*3/uL Nucleated RBC % (auto) (0.0-0.2) /100WBC PT 13.4 H (10.0-13.1) SEC INR 1.2 H (0.9-1.1) APTT 36.1 (26.0-36.4) SEC Sodium (135-145) mmol/L Potassium (3.3-5.1) mmol/L Chloride (96-108) mmol/L Carbon Dioxide (22-29) mmol/L Anion Gap (12-20) BUN (9-16) mg/dL Creatinine (0.5-1.4) mg/dL Estim Creat Clear Calc Estimated GFR POC Glucose (60-115) mg/dL Random Glucose (60-115) mg/dL Calcium (8.4-10.2) mg/dL Magnesium (1.6-2.6) mg/dL Total Bilirubin (0.0-1.0) mg/dL Direct Bilirubin (0.0-0.5) mg/dL AST (5-37) U/L ALT (0-40) U/L Alkaline Phosphatase (39-117) U/L Troponin I High Sens 18.2 (<3.5-35.0) ng/L B-Natriuretic Peptide 52 (<100) pg/mL Total Protein (6.5-8.0) g/dL Albumin (3.5-5.0) g/dL Urine Color Urine Appearance Urine pH (5.0-9.0) Ur Specific Campbell (1.005-1.025) Urine Protein (Neg-Trace) mg/dL Urine Glucose (UA) (Negative) mg/dL Urine Ketones (Negative) mg/dL Urine Blood (Negative) Urine Nitrite (Negative) Ur Leukocyte Esterase (Negative) Urine RBC (0-2) /HPF Urine WBC (0-5) /HPF Ur Squamous Epith Cells (0-2) /HPF Urine Bacteria (None Seen) Hyaline Casts (0-2) /LPF Urine Opiates Screen (Not Detect) Urine Fentanyl Screen (Not Detect) Ur Barbiturates Screen (Not Detect) Ur Phencyclidine Scrn (Not Detect) Ur Amphetamines Screen (Not Detect) U Benzodiazepines Scrn (Not Detect) Urine Cocaine Screen (Not Detect) U Marijuana (THC) Screen (Not Detect) COVID-19 ([facility]) (Negative) COVID-19 Clin Com 12/18/22 12/18/22 12/18/22 Range/Units 14:51 14:51 15:03 WBC (4.8-10.8) X10*3/uL RBC (4.60-5.80) X10*6/uL Hgb (14.0-18.0) g/dl Hct (42.0-52.0) % MCV (80.0-98.0) fL MCH (27.0-33.0) pg MCHC (31.0-36.0) g/dl RDW (11.0-16.0) % Plt Count (160-400) X10*3/uL MPV (9.4-12.4) fL Immature Gran % (Auto) (0.0-0.4) % Neut % (Auto) (45-73) % Lymph % (Auto) (20-40) % Ferry % (Auto) (2-11) % Eos % (Auto) (0-4) % Baso % (Auto) (0-2) % Lymph # (Auto) (1.2-4.9) X10*3/uL Ferry # (Auto) (0.1-1.2) X10*3/uL Eos # (Auto) (0.0-0.4) X10*3/uL Baso # (Auto) (0.0-0.2) X10*3/uL Abs Immat Gran (auto) (0.00-0.03) X10*3/uL Absolute Neuts (auto) (2.0-8.3) x10*3/uL Absolute Nucleated RBC (0.0-0.012) X10*3/uL Nucleated RBC % (auto) (0.0-0.2) /100WBC PT (10.0-13.1) SEC INR (0.9-1.1) APTT (26.0-36.4) SEC Sodium (135-145) mmol/L Potassium (3.3-5.1) mmol/L Chloride (96-108) mmol/L Carbon Dioxide (22-29) mmol/L Anion Gap (12-20) BUN (9-16) mg/dL Creatinine (0.5-1.4) mg/dL Estim Creat Clear Calc Estimated GFR POC Glucose (60-115) mg/dL Random Glucose (60-115) mg/dL Calcium (8.4-10.2) mg/dL Magnesium (1.6-2.6) mg/dL Total Bilirubin (0.0-1.0) mg/dL Direct Bilirubin (0.0-0.5) mg/dL AST (5-37) U/L ALT (0-40) U/L Alkaline Phosphatase (39-117) U/L Troponin I High Sens (<3.5-35.0) ng/L B-Natriuretic Peptide (<100) pg/mL Total Protein (6.5-8.0) g/dL Albumin (3.5-5.0) g/dL Urine Color Yellow Urine Appearance Clear Urine pH 5.5 (5.0-9.0) Ur Specific Campbell 1.010 (1.005-1.025) Urine Protein Negative (Neg-Trace) mg/dL Urine Glucose (UA) Negative (Negative) mg/dL Urine Ketones Negative (Negative) mg/dL Urine Blood Negative (Negative) Urine Nitrite Negative (Negative) Ur Leukocyte Esterase Trace H (Negative) Urine RBC 0-2 (0-2) /HPF Urine WBC 0-5 (0-5) /HPF Ur Squamous Epith Cells 0-2 (0-2) /HPF Urine Bacteria None Seen (None Seen) Hyaline Casts 0-2 (0-2) /LPF Urine Opiates Screen Not Detected (Not Detect) Urine Fentanyl Screen POSITIVE H (Not Detect) Ur Barbiturates Screen Not Detected (Not Detect) Ur Phencyclidine Scrn Not Detected (Not Detect) Ur Amphetamines Screen Not Detected (Not Detect) U Benzodiazepines Scrn Not Detected (Not Detect) Urine Cocaine Screen POSITIVE H (Not Detect) U Marijuana (THC) Screen Not Detected (Not Detect) COVID-19 ([facility]) Negative (Negative) COVID-19 Clin Com See Note 12/18/22 12/18/22 Range/Units 18:25 18:25 WBC (4.8-10.8) X10*3/uL RBC (4.60-5.80) X10*6/uL Hgb (14.0-18.0) g/dl Hct (42.0-52.0) % MCV (80.0-98.0) fL MCH (27.0-33.0) pg MCHC (31.0-36.0) g/dl RDW (11.0-16.0) % Plt Count (160-400) X10*3/uL MPV (9.4-12.4) fL Immature Gran % (Auto) (0.0-0.4) % Neut % (Auto) (45-73) % Lymph % (Auto) (20-40) % Ferry % (Auto) (2-11) % Eos % (Auto) (0-4) % Baso % (Auto) (0-2) % Lymph # (Auto) (1.2-4.9) X10*3/uL Ferry # (Auto) (0.1-1.2) X10*3/uL Eos # (Auto) (0.0-0.4) X10*3/uL Baso # (Auto) (0.0-0.2) X10*3/uL Abs Immat Gran (auto) (0.00-0.03) X10*3/uL Absolute Neuts (auto) (2.0-8.3) x10*3/uL Absolute Nucleated RBC (0.0-0.012) X10*3/uL Nucleated RBC % (auto) (0.0-0.2) /100WBC PT (10.0-13.1) SEC INR (0.9-1.1) APTT (26.0-36.4) SEC Sodium 136 (135-145) mmol/L Potassium 3.3 (3.3-5.1) mmol/L Chloride 96 (96-108) mmol/L Carbon Dioxide 30 H (22-29) mmol/L Anion Gap 13 (12-20) BUN 42 H (9-16) mg/dL Creatinine 1.53 H (0.5-1.4) mg/dL Estim Creat Clear Calc 61.1 Estimated GFR 47 POC Glucose (60-115) mg/dL Random Glucose 181 H (60-115) mg/dL Calcium 8.1 L D (8.4-10.2) mg/dL Magnesium (1.6-2.6) mg/dL Total Bilirubin (0.0-1.0) mg/dL Direct Bilirubin (0.0-0.5) mg/dL AST (5-37) U/L ALT (0-40) U/L Alkaline Phosphatase (39-117) U/L Troponin I High Sens 17.6 (<3.5-35.0) ng/L B-Natriuretic Peptide (<100) pg/mL Total Protein (6.5-8.0) g/dL Albumin (3.5-5.0) g/dL Urine Color Urine Appearance Urine pH (5.0-9.0) Ur Specific Campbell (1.005-1.025) Urine Protein (Neg-Trace) mg/dL Urine Glucose (UA) (Negative) mg/dL Urine Ketones (Negative) mg/dL Urine Blood (Negative) Urine Nitrite (Negative) Ur Leukocyte Esterase (Negative) Urine RBC (0-2) /HPF Urine WBC (0-5) /HPF Ur Squamous Epith Cells (0-2) /HPF Urine Bacteria (None Seen) Hyaline Casts (0-2) /LPF Urine Opiates Screen (Not Detect) Urine Fentanyl Screen (Not Detect) Ur Barbiturates Screen (Not Detect) Ur Phencyclidine Scrn (Not Detect) Ur Amphetamines Screen (Not Detect) U Benzodiazepines Scrn (Not Detect) Urine Cocaine Screen (Not Detect) U Marijuana (THC) Screen (Not Detect) COVID-19 ([facility]) (Negative) COVID-19 Clin Com <Peyman Solares MD - Last Filed: 12/18/22 19:08> Independent Interpretation I performed an independent interpretation of an: Plain X-Ray (Chest x-ray 2) <Peyman Solares MD - Last Filed: 12/18/22 19:08> Interpretation: My independent interpretation of the chest x-ray is no acute disease, this correlates with the radiologist read <Peyman Solares MD - Last Filed: 12/18/22 19:08> Radiology Impression Discussion of test interpretation with radiology: I have reviewed the radiologist's reading. <Peyman Solares MD - Last Filed: 12/18/22 19:08> Radiologist Impression: XR chest 1V IMPRESSION: No acute pulmonary disease. Dictated By:Medhat Tello MDSigned By:<Electronically signed by Medhat Tello MD in [place]>12/18/[address] head/brain wo IV con IMPRESSION: No evidence for acute hemorrhage or mass effect. Nasal bone fractures with soft tissue swelling. Dictated By:Travis EricksonSigned By:<Electronically signed by Travis Erickson in [place]>11/08/22 1023 <Peyman Solares MD - Last Filed: 12/18/22 19:08> Discharge Plan Discharge Clinical Impression: Near syncope, Orthostatic hypotension, Fluid volume depletion <ANTONINO Brooks - Last Filed: 12/18/22 14:17> Patient Disposition: Home, Self-Care <ANTONINO Brooks - Last Filed: 12/18/22 14:17> Instructions: Dehydration (ED) <ANTONINO Brooks - Last Filed: 12/18/22 14:17> Additional Instructions: Your symptoms were consistent with near syncope (almost fainting) secondary to being very dehydrated. Your blood work did reveal an elevation in your kidney numbers (BUN and creatinine) this was caused by severe dehydration as well. Make sure you increase the amount of fluid that you drink over the next 24-48 hours to help improve your kidney number and prevent further dehydration Your are being discharged home with intranasal Narcan. If you are going to continue to use heroin, you should make sure that there is a sober person with you that is not using drugs and that this person can administer intranasal Narcan in the event that you stop breathing. You should consider getting help with your cocaine use disorder. Your urine was positive for cocaine and fentanyl. Almost all street drugs are not contaminated with fentanyl and if you continue to use cocaine you will overdose on fentanyl and . Follow-up with your doctor in 2 days. Please return to the emergency department if your symptoms get worse or if you develop any symptoms that are concerning to you. <ANTONINO Brooks - Last Filed: 12/18/22 14:17> Prescriptions: No Action cyclobenzaprine 5 mg tablet 5 mg PO TID PRN (Reason: muscle spasm) Qty: 14 0RF naproxen 500 mg tablet 500 mg PO BID PRN (Reason: pain) Qty: 30 0RF lidocaine HCl 3 % cream 1 appl topical BID PRN (Reason: pain) Qty: 28.35 0RF <ANTONINO Brooks - Last Filed: 12/18/22 14:17>
[2022-12-18 14:15] VITALS: BP 121/82; PULSE 92; RESP 18; TEMP 36.2; O2SAT 93; BMI 26.0
[2022-12-18 14:31] LABS: Glucose, Whole Blood 122 mg/dL (60-115)
[2022-12-18 14:45] LABS: MANUAL DIFF FLAG NO
[2022-12-18 14:46] LABS: Basophils Percent Auto 0.3 % (0-2); Eosinophils Absolute Auto 0.2 X10*3/uL (0.0-0.4); Eosinophils Percent Auto 1.7 % (0-4); Hematocrit 46.1 % (42.0-52.0); Hemoglobin 15.4 g/dl (14.0-18.0); Imm Gran Abs Auto 0.02 X10*3/uL (0.00-0.03); Imm Gran Pct Auto 0.2 % (0.0-0.4); Lymphocytes Absolute Auto 2.5 X10*3/uL (1.2-4.9); Lymphocytes Percent Auto 26.5 % (20-40); Mean Corpuscular HGB Conc 33.4 g/dl (31.0-36.0); Mean Corpuscular Volume 89.7 fL (80.0-98.0); Mean Platelet Volume 10.7 fL (9.4-12.4); Monocytes Absolute Auto 0.6 X10*3/uL (0.1-1.2); Monocytes Percent Auto 6.6 % (2-11); Neutrophils Absolute Auto 6.1 x10*3/uL (2.0-8.3); Neutrophils Percent Auto 64.7 % (45-73); Platelet Count 228 X10*3/uL (160-400); Red Blood Count 5.14 X10*6/uL (4.60-5.80); Red Cell Distribution Width 12.6 % (11.0-16.0); White Blood Count 9.5 X10*3/uL (4.8-10.8)
[2022-12-18 14:58] LABS: INTERNATIONAL NORM RATIO 1.2 (0.9-1.1); Prothrombin Time 13.4 SEC (10.0-13.1)
[2022-12-18] MEDS: 0.9 % Sodium Chloride 1,000 ML 999 ML IV ×2 (14:58→17:17)
[2022-12-18 15:01] LABS: Appearance Urine Clear; Color Urine Yellow; Glucose Urine UA Negative (Negative); Leukocyte Esterase Urine Trace (Negative); Nitrite Urine Negative (Negative); PH 5.5 (5.0-9.0); UMIC TRIGGER UACC YES; Urine Blood Negative (Negative); Urine Ketones Negative (Negative); Urine Protein Negative (Neg-Trace)
[2022-12-18 15:02] LABS: Partial Thromboplastin Time 36.1 SEC (26.0-36.4)
[2022-12-18 15:08] LABS: Bacteria Urine None Seen (None Seen); Hyaline Casts Urine 0-2 /LPF (0-2); RBC Urine 0-2 /HPF (0-2); Squamous Epithelial Cell Urine 0-2 /HPF (0-2); WBC Urine 0-5 /HPF (0-5)
[2022-12-18 15:12] LABS: COVID-19 Test Negative (Negative); IDNOW Serial# BCCEAD1C
[2022-12-18 15:15] VITALS: BP 100/66; BP 114/73; BP 81/50; PULSE 92; PULSE 94
[2022-12-18 15:15] LABS: B Type Natriuretic Peptide 52 pg/mL (<100)
[2022-12-18 15:18] LABS: Alanine Aminotransferase 16 U/L (0-40); Albumin Level 4.3 g/dL (3.5-5.0); Alkaline Phosphatase 78 U/L (39-117); Anion Gap 17 (12-20); Aspartate Amino Transferase 23 U/L (5-37); Bilirubin Direct 0.4 mg/dL (0.0-0.5); Blood Urea Nitrogen 51 mg/dL (9-16); Carbon Dioxide 31 mmol/L (22-29); Chloride 93 mmol/L (96-108); Creatinine Clr Calc Pharmacy 51.4; Estimated Glomerular Filt Rate 38; Glucose Random 127 mg/dL (60-115); Magnesium 2.2 mg/dL (1.6-2.6); Potassium 3.8 mmol/L (3.3-5.1); Sodium 137 mmol/L (135-145); Total Protein 7.3 g/dL (6.5-8.0)
[2022-12-18 15:21] LABS: Amphetamine Screen Urine Not Detected (Not Detect); Barbiturates, Urine Not Detected (Not Detect); Benzodiazepines Screen Urine Not Detected (Not Detect); Cannabinoid Screen Urine Not Detected (Not Detect); Cocaine Screen Urine POSITIVE (Not Detect); Fentanyl, urine POSITIVE (Not Detect); Opiate Screen Urine Not Detected (Not Detect); Phencyclidine Screen Urine Not Detected (Not Detect)
[2022-12-18 15:26] LABS: Troponin-I High Sensitivity 18.2 ng/L (<3.5-35.0)
--- NOTE | 2022-12-18 15:31 | PC.NURSE ---
patient a/ox4 . ross . heart rate regular at 91 beats per minute . breathing even and unlabored . lungs clear throughout . skin pink warm and dry . patient placed on tax adjuster . orthostatic vitals obtained and reported to Dr Jasso . Patient postive for orthostatics. Normal saline started as ordered . patient aware of plan of care .
[2022-12-18 18:45] LABS: Anion Gap 13 (12-20); Blood Urea Nitrogen 42 mg/dL (9-16); Calcium 8.1 mg/dL (8.4-10.2); Carbon Dioxide 30 mmol/L (22-29); Chloride 96 mmol/L (96-108); Creatinine Clr Calc Pharmacy 61.1; Estimated Glomerular Filt Rate 47; Glucose Random 181 mg/dL (60-115); Potassium 3.3 mmol/L (3.3-5.1); Sodium 136 mmol/L (135-145)
[2022-12-18 18:53] LABS: Troponin-I High Sensitivity 17.6 ng/L (<3.5-35.0)
--- NOTE | 2022-12-18 22:27 | PC.NURSE ---
Pt was discharged prior to my shift.
== END 2022-12-18 22:27 | disposition home or self-care (01) ==
PROVIDERS: Physician Assistant; Emergency Provider Emergency Medicine Emergency Medical Services
DX: R55 Syncope and collapse (principal); I95.9 Hypotension, unspecified; E86.0 Dehydration; R06.02 Shortness of breath; R51.9 Headache, unspecified; Z20.822 Contact with and (suspected) exposure to COVID-19; Z20.828 Contact with and (suspected) exposure to other viral communicable diseases; Z79.899 Other long term (current) drug therapy
CPT/HCPCS: 36415; 70450; 71045; 80048; 80076; 80307; 81001; 81003; 82947; 83735; 83880; 84484; 85025; 85610; 85730; 87635; 93005; 96360; 96361; 99284; 99285